=== PATIENT | male | born 2005 | race African-American/Black ===

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

== ENCOUNTER 2025-01-19 19:30 | Emergency (ER) | payer MEDICAID, OTHER ==
[~2025-01-19] VITALS: Ht 188 cm; Wt 113.4 kg
[~2025-01-19 19:30] MED LIST changes: +NIRM1TAB10 PO; +OSEL75CA PO
[2025-01-19 19:40] VITALS: BP 137/77; TEMP 98.6; O2SAT 97
[2025-01-19] MEDS ORDERED: LIDOCAINE 2% 20 ML MDV ONE (20:04)
[2025-01-19] MEDS ORDERED: LIDOCAINE /MPF 1% VIAL 5 ML VIAL ONE (20:05)
[2025-01-19] MEDS ORDERED: BACITRACIN ZINC OINT PACKET 1 EA PACKET TP ONE (20:05)
[2025-01-19] MEDS: LIDOCAINE HCL/PF 1% 30 ML VIAL TP ONE (20:06)
[2025-01-19] MEDS: BACI/NEOM/POLY B OINT PKT 1 UDPKT PACKET TP ONE (20:06)
[2025-01-19] MEDS ORDERED: MUPI1OIN5 TP (21:13)
== END 2025-01-19 21:18 | disposition home or self-care (01) ==
LOC: ER 19:34
DX: S61.011A Laceration without foreign body of right thumb without damage to nail, initial encounter (principal); W26.0XXA Contact with knife, initial encounter; Y93.G1 Activity, food preparation and clean up; Y92.090 Kitchen in other non-institutional residence as the place of occurrence of the external cause; Y99.8 Other external cause status
CPT/HCPCS: 12001; 99283; J3490